=== PATIENT | female | born 1955 | race Caucasian/White ===

== ENCOUNTER 2019-11-18 13:16 | Emergency (ER) | payer MEDICARE, OTHER ==
[~2019-11-18] VITALS: Ht 162.6 cm; Wt 65.8 kg
--- NOTE | 2019-11-18 13:16 | NUR ---
PT MICHELLE FROM THE STREET C/O ACTING BIZZARE. PT IS AAOX1, NOT IN RESPIRATORY DISTRESS, HOOKED TO MATTRESS PACKER, KEPT RESTED AND COMFORTABLE. WILL CONTINUE TO MONITOR.
--- NOTE | 2019-11-18 13:20 | NUR ---
PT SEEN AND EXAMINED BY .
[2019-11-18] MEDS ORDERED: OLANZAPINE 5 MG TABLET ONE (13:28)
[2019-11-18] MEDS ORDERED: OLANZAPINE 5 MG TABLET PO ONE (13:30)
--- NOTE | 2019-11-18 13:37 | NUR ---
ER PHLEB AT BEDSIDE FOR BLOOD DRAW.
--- NOTE | 2019-11-18 14:06 | NUR ---
URINE SPECIMEN COLLECTED AND SENT TO LAB.
[2019-11-18 14:13] LABS: APPEARANCE,URINE Clear (CLEAR); BILIRUBIN,URINE SMALL (NEGATIVE); BLOOD, URINE Negative Ery/uL (NEGATIVE); COLOR,URINE Yellow (YELLOW); KETONES,URINE >=160 (NEGATIVE); LEUKOCYTE ESTERASE ,URINE Negative (NEGATIVE); NITRITE, URINE Negative (NEGATIVE); PH,URINE 5.5 (5.0-8.0); PROTEIN,URINE 30 mg/dl (NEGATIVE); UGLUCOSE Negative (NEGATIVE); UROBILINOGEN,URINE 0.2 EU/dL (0.2)
[2019-11-18 14:14] LABS: BACTERIA,URINE Few /HPF (None Seen); RBC,URINE 0-2 /HPF (0-2); SQUAMOUS EPITHELIAL CELL,UR Few /HPF (None Seen); WBC,URINE 0-2 /HPF (0-3)
[2019-11-18 14:17] LABS: BASOPHILS # (AUTO) 0.1 /CMM (0.0-0.2); EOSINOPHILS % (AUTO) 0.2 % (0.0-6.0); HEMATOCRIT 38 % (33-45); HEMOGLOBIN 12.7 g/dL (11.5-14.8); LYMPHOCYTES # (AUTO) 0.8 /CMM (0.8-4.8); LYMPHOCYTES % (AUTO) 10.1 % (20.0-44.0); MEAN CORPUSCULAR HGB CONC 33 g/dl (31.0-36.0); MEAN CORPUSCULAR VOLUME 97 fL (82-100); MONOCYTES # (AUTO) 0.5 /CMM (0.1-1.30); MONOCYTES % (AUTO) 6.3 % (2.0-12.0); NEUTROPHILS # (AUTO) 6.6 /CMM (1.8-8.9); NEUTROPHILS % (AUTO) 82.4 % (43.0-81.0); PLATELET COUNT (AUTO) 441 /CMM (150-450); RED BLOOD CELL COUNT(AUTO) 3.94 MIL/uL (4.0-5.2)
[2019-11-18 14:24] LABS: CALCIUM, SERUM 9.7 mg/dL (8.5-10.1); CARBON DIOXIDE 18 mmol/L (21-32); CHLORIDE 99 mmol/L (98-107); CREATININE 0.9 mg/dL (0.6-1.3); GLUCOSE 126 mg/dL (74-106); POTASSIUM 3.3 mmol/L (3.5-5.1); SODIUM SERUM 135 mmol/L (136-145); UREA NITROGEN, BLOOD 30 mg/dL (7-18)
[2019-11-18 14:30] LABS: ACETAMINOPHEN 0 ug/ml (10-30); ALANINE AMINOTRANSFERASE 17 U/L (12-78); ALBUMIN 3.3 g/dL (3.4-5.0); ALCOHOL, BLOOD < 3 mg/dL (0-0); ALKALINE PHOSPHATASE 117 U/L (46-116); ASPARTATE AMINOTRANSFERASE 21 U/L (15-37); BILIRUBIN,DIRECT 0.1 mg/dL (0.0-0.2); BILIRUBIN,TOTAL 0.4 mg/dL (0.2-1.0); SALICYLATE 2.8 mg/dL (2.8-20.0); TOTAL PROTEIN, SERUM 7.7 g/dL (6.4-8.2)
[2019-11-18] MEDS ORDERED: LORAZEPAM 1 MG TABLET ONE (17:39)
[2019-11-18] MEDS ORDERED: LORAZEPAM 1 MG TABLET PO ONE (18:00)
--- NOTE | 2019-11-18 19:54 | NUR ---
ASSUMED CARE FOR THIS PT
--- NOTE | 2019-11-18 23:00 | NUR ---
PT MUMBLING AT BEDSIDE. NO ACUTE DISTRESS NOTED. WILL CONTINUE TO MONITOR
--- NOTE | 2019-11-19 02:27 | NUR ---
PT RESTING COMFORTABLY IN BED. VSS. NO ACUTE DISTRESS NOTED. WILL CONTINUE TO MONITOR
--- NOTE | 2019-11-19 05:06 | NUR ---
PT AWAKE. IN BED. VSS. NO ACUTE DISTRESS NOTED. WILL CONTINUE TO MONITOR
--- NOTE | 2019-11-19 07:34 | NUR ---
PATIENT IN BED ASLEEP, EASILY AROUSABLE BY VOICE. HOOKED TO MONITOR, WILL CONTINUE TO MONITOR ACCORDINGLY
--- NOTE | 2019-11-19 08:12 | NUR ---
OFFERED BREAKFAST TRAY, REFUSED BY PATIENT
--- NOTE | 2019-11-19 09:37 | NUR ---
PATIENT IN BED AWAKE, HOOKED TO MONITOR, KEPT COMFORTABLE. WILL CONTINUE TO MONITOR ACCORDINGLY.
--- NOTE | 2019-11-19 10:01 | NUR ---
PIPE LINE GAUGER AT BEDSIDE FOR EVAL.
--- NOTE | 2019-11-19 10:46 | NUR ---
MALENA NOTE: [employer] was asked to evaluate pt by pt's RNJOHNATHON. Pt was not alert or completely arousable. Pt's RN reported the pt is ready to be discharged, but she cannot leave without her wheelchair, which is at her home. MALENA attempted to speak to pt's to clarify her address, living situation, and obtain contact information for an emergency contact that could assist with bringing her wheelchair to the ER. Pt reported she lives with her son, "Deon," and reported she could not remember her son's phone number. Pt reported she needs her wheelchair. Pt could not verify her address to , or provide further information. MALENA consulted with pt's nurse, who reported the pt is a poor historian and has not given staff any information pertinent to her situation or emergency contact. MALENA contacted [facility] ([phone]) and asked to send an officer to the pt's address (reported on pt's face sheet) in attempt to make contact with the pt's son. MALENA asked Officer Billy, to have the son contact SW directly. Per Officer Billy, [facility]. MALENA is pending a follow up phone call from [facility] on outcome of visit. Addendum: 11/19/19 at 1055 by RIGOBERTO GUY Aforementioned information endorsed to MINOR LIN
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
--- NOTE | 2019-11-19 11:59 | NUR ---
MALENA NOTE: MALENA spoke to pt's daughter in law, Dipti ([phone]) to confirm that the pt will be discharge home, transported via ambulance. MALENA will contact Dipti once an ETA for discharge and transportation is known.
--- NOTE | 2019-11-19 12:06 | NUR ---
CALLED [facility] FOR TRANSPORT TO [facility]. ETA 30 MINUTES.
[2019-11-19 12:42] VITALS: BP 139/79
--- NOTE | 2019-11-19 12:47 | NUR ---
Patient discharged to home in stable condition. Picked up by [facility] [address] and will be brought home. Written and verbal after care instructions given. Patient verbalizes understanding of instruction.
== END 2019-11-19 12:45 | disposition home or self-care (01) ==
LOC: ER 13:24 → EDBD 13:24 → ER 11-19 12:45
DX: F28 Other psychotic disorder not due to a substance or known physiological condition (principal); F20.9 Schizophrenia, unspecified; F31.9 Bipolar disorder, unspecified
CPT/HCPCS: 36415; 80048; 80076; 80305; 80307; 80329; 81001; 85025; 99285; G0480; 81000-TC

== ENCOUNTER 2020-01-11 17:02 | Inpatient (IN) | payer MEDICARE, OTHER ==
[~2020-01-11] VITALS: Ht 157.5 cm; Wt 63.5 kg
[2020-01-11 09:00] VITALS: BP 95/60
--- NOTE | 2020-01-11 17:05 | NUR ---
ER BED 11 PT CAME IN BROUGHT IN BY AMBULANCE WITH CHEIF COMPLAINT OF WEAKNESS. PT ALSO COMPLAINING OF PAIN ON L SIDE OF THE CHEST UPON ASSESSMENT. VS CHECKED. BP WAS NOTED LOW WITH SBPS AT 80S. PER PT PAST MEDICAL HX IBCLUDES FIBROMYALGIA, OSTEOPOROSIS, BIPOLAR, SHE ASO STATES THAT SHE HAS HX OF CANCER IN HER UTERUS, THYROID AND SPINE. VS CHECKED. REPORTED TO
[2020-01-11] MEDS ORDERED: FAMOTIDINE (20 MG) 20 MG TABLET PO ONE (17:30)
[2020-01-11] MEDS ORDERED: FAMOTIDINE/PF INJ 20 MG/2 ML VIAL IV ONE (17:31)
--- NOTE | 2020-01-11 17:45 | NUR ---
IV ACCESS IV ACCESS STARTED ON L HAND G20. INTACT AND PATENT AND FLUSHING WELL.
[2020-01-11 17:47] LABS: BASOPHILS # (AUTO) 0.1 /CMM (0.0-0.2); BASOPHILS % (AUTO) 1.1 % (0.0-2.0); EOSINOPHILS % (AUTO) 2.9 % (0.0-6.0); HEMATOCRIT 40 % (33-45); HEMOGLOBIN 12.9 g/dL (11.5-14.8); LYMPHOCYTES # (AUTO) 1.4 /CMM (0.8-4.8); LYMPHOCYTES % (AUTO) 26.6 % (20.0-44.0); MEAN CORPUSCULAR HGB CONC 33 g/dl (31.0-36.0); MEAN CORPUSCULAR VOLUME 97 fL (82-100); MONOCYTES # (AUTO) 0.5 /CMM (0.1-1.30); MONOCYTES % (AUTO) 9.5 % (2.0-12.0); NEUTROPHILS # (AUTO) 3.1 /CMM (1.8-8.9); NEUTROPHILS % (AUTO) 59.9 % (43.0-81.0); PLATELET COUNT (AUTO) 273 /CMM (150-450); RED BLOOD CELL COUNT(AUTO) 4.07 MIL/uL (4.0-5.2); WHITE BLOOD COUNT (AUTO) 5.2 K/uL (4.3-11.0)
--- NOTE | 2020-01-11 17:50 | NUR ---
BP DR. ALCARAZ MADE AWARE REGARDING PTS BP OF 82/50. PLACED PT ON [place] POSITION. ALSO PT WAS COMPLAINING OF LEFT CHEST TIGHTNESS. MADE AWARE.
[2020-01-11] MEDS ORDERED: IV NS 0.9% 1,000 ML BAG IV ONE ×2 (18:00→19:00)
--- NOTE | 2020-01-11 18:07 | NUR ---
PATIENT BACK FROM CT SCAN
[2020-01-11 18:29] LABS: CREATININE 1.1 mg/dL (0.6-1.3); POTASSIUM 3.7 mmol/L (3.5-5.1)
--- NOTE | 2020-01-11 18:32 | NUR ---
RAPID COVID SWAB DONE AND SENT TO LAB.
[2020-01-11 18:34] LABS: ALBUMIN 3.2 g/dL (3.4-5.0); BILIRUBIN,DIRECT 0.1 mg/dL (0.0-0.2); BILIRUBIN,TOTAL 0.5 mg/dL (0.2-1.0); TOTAL PROTEIN, SERUM 7.3 g/dL (6.4-8.2)
[2020-01-11] MEDS ORDERED: FAMO20TA8 PO (18:36)
[2020-01-11] MEDS ORDERED: GABA-532 PO (18:36)
[2020-01-11] MEDS ORDERED: HALO5TAB PO (18:36)
[2020-01-11] MEDS ORDERED: LISI-603 PO (18:36)
--- NOTE | 2020-01-11 18:37 | NUR ---
MOVE SHEET SUBMITTED AND CALLED FOR MS BED.
--- NOTE | 2020-01-11 19:09 | NUR ---
LAB CALLED REGARDING MRSA, ORDER PLACED.
--- NOTE | 2020-01-11 19:19 | NUR ---
REPORT GIVEN TO PREET GAXIOLA FOR NICHOLE.
--- NOTE | 2020-01-11 20:31 | NUR ---
REPORT GIVEN TO PAM GAXIOLA FOR NICHOLE
--- NOTE | 2020-01-11 20:54 | NUR ---
CAMPAIGN ASSOCIATE NOTES Received patient A/O x4, awake, from ER via gurney accompanied by 2 ER staff. Admitted to Tele 307-1 due to syncope under the service of NEY Garcia. Transferred to bed comfortably. Admission routine done. Pt refused to removed clothing at this time. Patient denies any skin issues, refused body assessment at this time. Pt belongings inventory completed by SHIVA Hi. Awaiting for admission orders at this time. Kept on bed clean, dry and comfortable. On fall and aspiration precautions. Will continue to monitor accordingly.
[2020-01-11 21:00] VITALS: BP 95/60
[2020-01-11] MEDS ORDERED: IV NS 0.9% 1,000 ML IV PRN (23:37)
[2020-01-12] VITALS (9 sets, daily range): BP systolic 82–130; BP diastolic 37–76
[2020-01-12] MEDS ORDERED: ONDANSETRON HCL/PF 4 MG/2 ML VIAL IVP PRN
[2020-01-12] MEDS ORDERED: ACETAMINOPHEN 325 MG TABLET PO PRN
[2020-01-12] MEDS ORDERED: MAGNESIUM HYDROXIDE 30 ML UDC PO PRN
[2020-01-12] MEDS ORDERED: MAG HYDROX/AL HYDROX/SIMETH 30 ML UDC PO PRN
[2020-01-12] MEDS ORDERED: Z GUARD REMEDY 2 OZ OINT TP PRN
[2020-01-12] MEDS ORDERED: ZOLPIDEM TARTRATE 5 MG TABLET PO PRN
[2020-01-12] MEDS: HYDROCODONE/APAP 5/325MG TABLET PO PRN ×3 (02:04→22:18)
[2020-01-12 06:32] LABS: BASOPHILS % (AUTO) 0.8 % (0.0-2.0); EOSINOPHILS % (AUTO) 4.1 % (0.0-6.0); HEMATOCRIT 33 % (33-45); HEMOGLOBIN 10.9 g/dL (11.5-14.8); LYMPHOCYTES # (AUTO) 1.7 /CMM (0.8-4.8); LYMPHOCYTES % (AUTO) 36.7 % (20.0-44.0); MEAN CORPUSCULAR HGB CONC 33 g/dl (31.0-36.0); MEAN CORPUSCULAR VOLUME 96 fL (82-100); MONOCYTES # (AUTO) 0.4 /CMM (0.1-1.30); MONOCYTES % (AUTO) 9.5 % (2.0-12.0); NEUTROPHILS # (AUTO) 2.3 /CMM (1.8-8.9); NEUTROPHILS % (AUTO) 48.9 % (43.0-81.0); PLATELET COUNT (AUTO) 224 /CMM (150-450); RED BLOOD CELL COUNT(AUTO) 3.46 MIL/uL (4.0-5.2); WHITE BLOOD COUNT (AUTO) 4.6 K/uL (4.3-11.0)
[2020-01-12 06:42] LABS: ALBUMIN 2.3 g/dL (3.4-5.0); BILIRUBIN,TOTAL 0.3 mg/dL (0.2-1.0); CALCIUM, SERUM 7.7 mg/dL (8.5-10.1); MAGNESIUM 1.8 mg/dL (1.8-2.4); PHOSPHORUS 2.8 mg/dL (2.5-4.9); POTASSIUM 3.3 mmol/L (3.5-5.1); TOTAL PROTEIN, SERUM 5.4 g/dL (6.4-8.2)
[2020-01-12] MEDS: PANTOPRAZOLE 40 MG TABLET.DR PO SCH (06:42)
[2020-01-12 06:54] LABS: THYROID STIMULATING HORMONE 0.628 uIU/mL (0.358-3.74)
--- NOTE | 2020-01-12 06:55 | NUR ---
RN CLOSING NOTES Pt asleep on bed. No new complaints made. Due meds given as ordered, no ASE noted. All nursing needs attended. Kept on bed clean, dry and comfortable. On fall and aspiration precautions. Endorsed.
--- NOTE | 2020-01-12 07:24 | NUR ---
QUILTING MACHINE HELPER OPENING NOTES RECEIVED PATIENT IN BED, AWAKE, A/O X4. PATIENT IS ON ROOM AIR; BREATHING IS EVEN AND UNLABORED; NO SOB NOTED AT THIS TIME. TELE MONITOR WITH A CURRENT READING OF SINUS RHYTHM 71 BPM. COMPLAINING OF GENERALIZED BODY PAIN. L HAND IV ACCESS G # 20 INFUSING NS AT 75 MLS/HR. SAFETY PRECAUTIONS IN PLACE; BED IN LOW POSITION AND LOCKED, RAILS UP X2, CALL LIGHT WITHIN REACH. WILL CONTINUE TO MONITOR PATIENT.
[2020-01-12] MEDS: ENOXAPARIN SODIUM 40 MG/0.4 ML DISP.SYRIN SQ SCH (08:28)
--- NOTE | 2020-01-12 08:29 | NUR ---
PRINTER ASSISTANT NOTES PATIENT REFUSED HER 0900 ENOXAPARIN STATING SHE DOES NOT WANT ANY SHOTS.
--- NOTE | 2020-01-12 08:36 | NUR ---
INTERACTIVE MARKETING STRATEGIST NOTES PATIENT COMPLAINING OF GENERALIZED PAIN 5/10. REQUESTING PRN PAIN MEDICATION. PRN NOCRO ADMINISTERED.
[2020-01-12 09:18] LABS: FERRITIN 96 ng/mL (8-388)
[2020-01-12] MEDS: IV NS 0.9% 1,000 ML IV SCH ×3 (09:30→19:49)
[2020-01-12 09:54] LABS: IRON, SERUM 47 ug/dl (50-175); TOTAL IRON BINDING CAPACITY 178 ug/dl (250-450)
[2020-01-12] MEDS ORDERED: POTASSIUM CHLORIDE 20 MEQ TAB.PRT.SR PO SCH (11:30)
--- NOTE | 2020-01-12 12:46 | NUR ---
STEAM PLANT CONTROL ROOM OPERATOR NOTES ORTHOSTATIC BP L: B/P 82/45 HR 50 RESP 18 TEMP 98.2 O2 99 S: B/P 103/37 HR 62 RESP 20 [address]: B/P 95/56 HR 74 RESP 20 TEMP 98.2 O2 99 MANUAL BP READING 95/60 CHARGE NURSE AWARE. IV FLUIDS RUNNING. WILL CONTINUE TO MONITOR PATIENT.
[2020-01-12] MEDS: HALOPERIDOL 5 MG TABLET PO SCH (16:14)
[2020-01-12] MEDS: GABAPENTIN 100 MG CAPSULE PO SCH (16:15)
--- NOTE | 2020-01-12 18:31 | NUR ---
TINSMITH APPRENTICE CLOSING NOTES PATIENT IN BED, AWAKE, A/O X3. PATIENT IS ON ROOM AIR; BREATHING IS EVEN AND UNLABORED; NO SOB NOTED AT THIS TIME. SATURATING AT 98-100% DURING SHIFT. TELE MONITOR WITH A CURRENT READING OF SINUS RHYTHM 61 BPM. L HAND IV ACCESS G # 20 INFUSING NS AT 200 MLS/HR. ALL NEEDS ATTENDED TO THROUGHOUT THE DAY. SAFETY PRECAUTIONS IN PLACE; BED IN LOW POSITION AND LOCKED, RAILS UP X2, CALL LIGHT WITHIN REACH. WILL ENDORSE TO DREDGE MATE NURSE.
--- NOTE | 2020-01-12 19:30 | NUR ---
SCIENTIFIC PHOTOGRAPHER NOTES RECEIVED ON BED,ON SITTING POSITION,A/O X3,BREATHING REGULAR,NOT IN ANY FORM OF DISTRESS,IVF NS AT 200ML/HR RATE INFUSING WELL ON LEFT HAND,SITE PATENT.TELE SB-59 ON TELE MONITOR.FALL RISK,BED ALARM,BD ON LOWEST POSITION AND LOCKED.CALL LIGHT IN REACH,NEEDS ANTICIPATED.
--- NOTE | 2020-01-12 22:18 | NUR ---
PACKAGING INSPECTOR NOTES PAIN MANAGEMENT C/O PAIN ON TAILBONE 8/10 ON PAIN SCALE.MEDICATED WITH NORCO 5/325MG,1 TAB ORDERED AND PER PATIENT REQUEST.
[2020-01-13] VITALS (7 sets, daily range): BP systolic 125–150; BP diastolic 67–94
--- NOTE | 2020-01-13 01:45 | NUR ---
PERSONNEL QUALITY ASSURANCE AUDITOR NOTES STILL AWAKE,MEDICATED WITH AMBIEN 5MG PO ORDERED.
--- NOTE | 2020-01-13 06:21 | NUR ---
HUMAN RESOURCES SPECIALIST NOTES SLEPT WELL WITH WEN,PAIN IMPROVED WITH NORCO.NS 3 LITER COMPLETED.CALL LIGHT IN REACH,NEEDS ATTENDED.WILL ENDORSE TO DAY NURSE FOR NICHOLE.
[2020-01-13 06:52] LABS: BASOPHILS % (AUTO) 0.9 % (0.0-2.0); EOSINOPHILS % (AUTO) 5.2 % (0.0-6.0); HEMATOCRIT 32 % (33-45); HEMOGLOBIN 10.4 g/dL (11.5-14.8); LYMPHOCYTES # (AUTO) 1.3 /CMM (0.8-4.8); LYMPHOCYTES % (AUTO) 39.5 % (20.0-44.0); MEAN CORPUSCULAR HGB CONC 33 g/dl (31.0-36.0); MEAN CORPUSCULAR VOLUME 95 fL (82-100); MONOCYTES # (AUTO) 0.4 /CMM (0.1-1.30); MONOCYTES % (AUTO) 11.7 % (2.0-12.0); NEUTROPHILS # (AUTO) 1.4 /CMM (1.8-8.9); NEUTROPHILS % (AUTO) 42.7 % (43.0-81.0); PLATELET COUNT (AUTO) 195 /CMM (150-450); WHITE BLOOD COUNT (AUTO) 3.3 K/uL (4.3-11.0)
[2020-01-13 07:13] LABS: CALCIUM, SERUM 8.1 mg/dL (8.5-10.1); CREATININE 0.7 mg/dL (0.6-1.3); POTASSIUM 3.5 mmol/L (3.5-5.1)
[2020-01-13] MEDS: PANTOPRAZOLE 40 MG TABLET.DR PO SCH (07:24)
--- NOTE | 2020-01-13 07:50 | NUR ---
RN OPENING NOTES RECEIVED PATIENT RESTING IN BED COMFORTABLY, AWAKE. PT IS AOX3, VERBAL, AND ON BED REST. SHE IS ON RA, TOLERATING WELL, NO SOB OR RESP DISTRESS PRESENT. PT DENIES ANY CHEST PAIN OR SOB. TELE MONITOR SHOWING SR. IV SITE ON L HAND 20 G IS PATENT AND INTACT. PSYCH CONSULT PENDING. SAFETY MEASURES HAVE BEEN IMPLEMENTED, CALL LIGHT IS WITHIN REACH, BED IS IN LOWEST AND LOCKED POSITION, SIDE RAILS UP X2, WILL CONTINUE TO MONITOR FOR ANY CHANGES.
[2020-01-13] MEDS: ENOXAPARIN SODIUM 40 MG/0.4 ML DISP.SYRIN SQ SCH (09:00)
[2020-01-13] MEDS: GABAPENTIN 100 MG CAPSULE PO SCH ×2 (09:02→16:04)
[2020-01-13] MEDS: HALOPERIDOL 5 MG TABLET PO SCH ×2 (09:02→16:04)
[2020-01-13] MEDS: HYDROCODONE/APAP 5/325MG TABLET PO PRN ×2 (09:03→18:33)
--- NOTE | 2020-01-13 11:12 | NUR ---
RN NOTES ATTEMPTED TO CALL PT FAMILY (DAUGHTER KANDIS) TO ARRANGE TRANSPORTATION FOR DC. HOWEVER, NO ONE WAS AVAILABLE, WILL TRY AGAIN LATER
--- NOTE | 2020-01-13 12:53 | NUR ---
RN NOTES STILL UNABLE TO REACH FAMILY FOR DC PLANNING
--- NOTE | 2020-01-13 14:13 | NUR ---
RN NOTES MADE THIRD ATTEMPT AT TRYING TO REACH FAMILY. CALL GOES STRAIGHT TO [employer] AND ANOTHER NUMBER IS DISCONNECTED. PT IS UNABLE TO PROVIDE ME WITH ANY OTHER TELEPHONE NUMBER. WILL CONTINUE TO MONITOR
--- NOTE | 2020-01-13 17:30 | NUR ---
RN NOTES STILL UNABLE TO CONTACT FAMILY FOR DC. UPDATED CASE MANAGEMENT
--- NOTE | 2020-01-13 18:47 | NUR ---
RN CLOSING NOTES PT IS RESTING IN BED COMFORTABLY, MEDICATED WITH NORCO 30 MIN AGO FOR LOWER BACK PAIN. READY FOR DC. NO ACUTE CHANGES OCCURRED THROUGHOUT THE SHIFT, VITAL SIGNS ARE STABLE, PT NEEDS HAVE BEEN MET. SAFETY MEASURES HAVE BEEN IMPLEMENTED, CALL LIGHT IS WITHIN REACH, BED IS IN LOWEST AND LOCKED POSITION, SIDE RIALS UP X2, WILL ENDORSE TO NIGHTSHIFT RN FOR NICHOLE.
--- NOTE | 2020-01-13 19:28 | NUR ---
MS RN NOTES RECEIVED PATIENT, AWAKE ALERT ORIENTED X4. DENIES ANY PAIN OR DISCOMFORT AT THIS TIME, LAST NORCO GIVEN AT 1815 PER AM NURSE REPORT, PATIENT IS FOR DISCHARGE, BEEN TRYING TO CONTACT PATIENT'S SON, AND DAUGHTER IN LAW, NO RESPONSE SINCE 12NOON. SAFETY MEASURES INPLACE, CALL LIGHT WITH IN EASY REACH, BED IN LOW LOCKED POSITION, ASPIRATION PRECAUTION EMPHASIZED. PERIPHERAL IV ACCESS INTACT AND PATENT. INFORMED CHARGE NURSE MINOR QUEZADA AND AM CHARGE NURSE MINOR HALLMAN REGARDING CONCERNS FOR DISCHARGE, UNABLE TO REACH FAMILY TO ARRANGE FOR TRANSIT SURVEY WORKER. WILL CONTINUE TO MONITOR ACCORDINGLY.
--- NOTE | 2020-01-13 19:33 | NUR ---
RN NOTES NUMBERS USED TO ATTEMPT TO REACH FAMILY.
--- NOTE | 2020-01-13 20:19 | NUR ---
RN NOTES ATTEMPTED TO CALL AND LEFT MESSAGES( 6 TIMES ) THE FOLLOWING TELEPHONE NUMBERS OF FAMILY MEMBERS GIVEN BY PATIENT. NO RESPONSE YET.
--- NOTE | 2020-01-14 06:10 | NUR ---
MS RN NOTES ABLE TO REST AND SLEPT WITH LONG INTERVALS, DENIES ANY PAIN OR DISCOMFORT, SAFETY MEASURES IN PLACE, CALL LIGHT WITH IN EASY REACH. WILL ENDORSE TO AM NURSE REGARDING DISCHARGE TRANSPORTATION.
[2020-01-14] MEDS: PANTOPRAZOLE 40 MG TABLET.DR PO SCH (07:03)
--- NOTE | 2020-01-14 07:15 | NUR ---
MS RN NOTE RECEIVED PATIENT IN BED ASLEEP AROUSALE TO VERBAL AND TACTILE STIMULI. HOB ELEVATED. NO SOB. DENEIS ANY C/O PAIN NOR DISCOMFORT AT THIS TIME. PATIENT DIDN'T WANT TO EAT BREAKFAST AT THIS TIME AND WILL EAT LATER. BED IN LOWEST POSITION, LOCKED. BED SIDERAILS UP X2. ABLE TO VERBALIZE NEEDS. CALL LIGHT WITHIN REACH.
[2020-01-14 08:00] VITALS: BP 125/73
[2020-01-14] MEDS: GABAPENTIN 100 MG CAPSULE PO SCH ×2 (08:26→16:16)
[2020-01-14] MEDS: HALOPERIDOL 5 MG TABLET PO SCH ×2 (08:26→16:16)
[2020-01-14] MEDS: ENOXAPARIN SODIUM 40 MG/0.4 ML DISP.SYRIN SQ SCH (08:27)
--- NOTE | 2020-01-14 08:45 | NUR ---
MS RN NOTE CALLED SON LAURA [phone], NOANSWER AND LEFT MESSAGE.
--- NOTE | 2020-01-14 09:15 | NUR ---
MS RN NOTE DR. FISHER TELE CONSULT WITH PATIENT.
[2020-01-14 16:00] VITALS: BP 143/73
[2020-01-14] MEDS: HYDROCODONE/APAP 5/325MG TABLET PO PRN (16:19)
--- NOTE | 2020-01-14 17:00 | NUR ---
MS RN NOTES PATIENT FOR DISCHARGE. CALLED SON AND LEFT MESSAGE THAT PATIENT IS GOING TO [facility] AND LEFT PHONE NUMBER OF SNF. DISCHARGE INSTRUCTIONS AND REPORT REPORT GIVEN TO MINOR ORTIZ AT [facility]. DISCHARGE INSTRUCTIONS AND EDUCATION GIVEN TO PATIENT. ALL BELONGS ACCOUNTED FOR. IV AV ACCESS TO LEFT HAND REMOVED WITH CATHETER TIP INTACT. PATIENT LEFT IN STABLE CONDITION. IN NO APPARENT DISTRESS.
== END 2020-01-14 17:10 | disposition home or self-care (01) | DRG 74 ==
LOC: ER 17:08 → TELE 20:21 → MED 01-13 08:54
PROVIDERS: ADMIT Hospitalist; ATTEND Nurse Practitioner Acute Care
DX: G90.8 Other disorders of autonomic nervous system (principal); E44.1 Mild protein-calorie malnutrition; E86.0 Dehydration; I95.1 Orthostatic hypotension; E87.6 Hypokalemia; K21.9 Gastro-esophageal reflux disease without esophagitis; F31.9 Bipolar disorder, unspecified; F25.9 Schizoaffective disorder, unspecified; Z88.2 Allergy status to sulfonamides; M81.0 Age-related osteoporosis without current pathological fracture; M79.7 Fibromyalgia; M19.90 Unspecified osteoarthritis, unspecified site; Z87.891 Personal history of nicotine dependence; Z85.850 Personal history of malignant neoplasm of thyroid; E88.09 Other disorders of plasma-protein metabolism, not elsewhere classified; Z68.25 Body mass index [BMI] 25.0-25.9, adult
CPT/HCPCS: 36415; 70450-TC; 71045-TC; 80048-TC; 80053-TC; 80061-TC; 80076-TC; 82728-TC; 83540-TC; 83735-TC; 84100-TC; 84443-TC; 84484-TC; 85025-TC; 87081-TC; 92521; 93307-TC; 93880-TC; 97116-TC; 97530-TC; C9803-CS; G0378; J1650; J3490; J7030

== ENCOUNTER 2020-01-24 19:06 | Emergency (ER) | payer MEDICARE, OTHER ==
[~2020-01-24] VITALS: Ht 157.5 cm; Wt 64.0 kg
[~2020-01-24 19:06] MED LIST: FAMO20TA8 PO; GABA-532 PO; HALO5TAB PO; LISI-603 PO
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
--- NOTE | 2020-01-24 19:49 | NUR ---
MD AT BEDSIDE SPEAKING TO PT
[2020-01-24] MEDS: oxyCODONE IR immediate release 5 MG PO STA (20:23)
[2020-01-24] MEDS ORDERED: oxyCODONE/APAP (5/325 MG) 1 UDTAB TABLET ONE (20:35)
[2020-01-24] MEDS: oxyCODONE/APAP (5/325 MG) 1 UDTAB TABLET PO ONE (20:41)
--- NOTE | 2020-01-24 21:20 | NUR ---
CALLED [facility] TO UPDATE PLAN OF CARE. PT WILL BE DISCHARGED.
--- NOTE | 2020-01-24 21:30 | NUR ---
CALLED [facility] ETA [phone] HOURS
--- NOTE | 2020-01-24 21:37 | NUR ---
CALLED [facility] ETA 0000 HOURS TRIP#[id number]
[2020-01-25 00:46] VITALS: BP 112/67
== END 2020-01-25 00:47 | disposition home or self-care (01) ==
LOC: ER 19:07
DX: S42.292A Other displaced fracture of upper end of left humerus, initial encounter for closed fracture (principal); R07.81 Pleurodynia; M25.512 Pain in left shoulder; K21.9 Gastro-esophageal reflux disease without esophagitis; M81.0 Age-related osteoporosis without current pathological fracture; Z88.2 Allergy status to sulfonamides; Z79.899 Other long term (current) drug therapy; W01.0XXA Fall on same level from slipping, tripping and stumbling without subsequent striking against object, initial encounter; Y93.89 Activity, other specified; Y92.89 Other specified places as the place of occurrence of the external cause; Y99.8 Other external cause status
CPT/HCPCS: 71100-TC; 73030-TC; 73070-TC